=== PATIENT | male | born 1970 | race Hispanic/Latino ===

== ENCOUNTER → 2020-10-31 08:03 | Outpatient (CLI) | payer OTHER, MEDICAID, SELFPAY ==
[2020-10-31] MEDS: COVID-19 VACC #1, MRNA(MOD) 100 MCG/0.5 ML VIAL IM (08:09)
== END ==
PROVIDERS: Visit Provider Internal Medicine
DX: Z23 Encounter for immunization (principal)
CPT/HCPCS: 0011A; 91301

== ENCOUNTER → 2020-11-28 07:49 | Outpatient (CLI) | payer OTHER, MEDICAID, SELFPAY ==
[2020-11-28] MEDS: COVID-19 VACC #2, MRNA(MOD) 100 MCG/0.5 ML VIAL IM (08:03)
== END ==
PROVIDERS: Visit Provider Internal Medicine
DX: Z23 Encounter for immunization (principal)
CPT/HCPCS: 0012A; 91301